=== PATIENT | female | born 1995 | race African-American/Black ===

== ENCOUNTER 2021-11-22 16:55 | Outpatient (CLI) | payer OTHER | END 2021-11-22 20:49 | disposition home or self-care (01) | LOC: RAD 16:55 | PROVIDERS: ATTEND Nurse Practitioner Family | DX: U07.1 COVID-19 (principal) ==

== ENCOUNTER 2021-11-23 12:13 | Outpatient (CLI) | payer OTHER ==
[~2021-11-23] VITALS: Ht 149.9 cm; Wt 71.7 kg
== END 2021-11-23 23:09 | disposition home or self-care (01) ==
LOC: INF 12:13
PROVIDERS: ATTEND Nurse Practitioner Family
DX: U07.1 COVID-19 (principal); Z23 Encounter for immunization
CPT/HCPCS: 96365; Q0247